=== PATIENT | male | born 1965 | race Two or more races ===

== ENCOUNTER 2018-09-17 17:32 | Emergency (ER) | payer MEDICAID ==
[~2018-09-17] VITALS: Ht 175.3 cm; Wt 75.0 kg
[2018-09-17 17:35] VITALS: BP 120/78
[2018-09-17] MEDS ORDERED: BACITRACIN ZINC OINT 500U/GM, 0.9 GM ONE (18:33)
== END 2018-09-17 19:23 | disposition home or self-care (01) ==
LOC: ED 18:11
DX: S50.862A Insect bite (nonvenomous) of left forearm, initial encounter (principal); L03.032 Cellulitis of left toe; W57.XXXA Bitten or stung by nonvenomous insect and other nonvenomous arthropods, initial encounter; Y93.89 Activity, other specified; Y92.89 Other specified places as the place of occurrence of the external cause; Y99.8 Other external cause status
CPT/HCPCS: 99283

== ENCOUNTER 2020-03-08 17:12 | Inpatient (IN) | payer OTHER ==
[~2020-03-08] VITALS: Ht 175.3 cm; Wt 85.5 kg
--- NOTE | 2020-03-08 18:04 | NUR ---
TAXI DANCER: PT AMBULATORY TO ROOM FROM LOBBY
--- NOTE | 2020-03-08 18:13 | NUR ---
PT NOT IN ROOM 9.
[2020-03-08 18:41] LABS: BASOPHILS # (AUTO) 0.01 x10^3/uL (0-0.1); BASOPHILS % (AUTO) 0 % (0-1); EOSINOPHILS % (AUTO) 0 % (1-7); LYMPHOCYTES % (AUTO) 7 % (22-44); MD NO; MEAN CORPUSCULAR HGB CONC 33.9 g/dL (33.2-36.2); MEAN CORPUSCULAR VOLUME 85.6 fL (81-97); MEAN PLATELET VOLUME 8.1 fL (7.4-10.4); MONOCYTES # (AUTO) 0.39 x10^3/uL (0.2-0.8); MONOCYTES % (AUTO) 4 % (2-9); NEUTROPHILS # (AUTO) 9.89 x10^3/uL (1.8-6.8); NEUTROPHILS % (AUTO) 89 % (42-75); PLATELET COUNT 312 x10^3/uL (130-400); RED BLOOD COUNT 5.38 x10^6/uL (4.38-5.82); RED CELL DISTRIBUTION WIDTH 14.7 % (9.4-14.8)
[2020-03-08 18:50] LABS: ALBUMIN 3.9 g/dL (3.4-5.0); ANION GAP 10 mmol/L (5-15); CALCIUM 9.3 mg/dL (8.5-10.1); CHLORIDE 107 mmol/L (98-107)
--- NOTE | 2020-03-08 18:58 | NUR ---
16 jamil placed using sterile technique-concentrated urine noted-sent for analysis
[2020-03-08 19:08] LABS: CULTURE INDICATED? YES; MICROSCOPIC INDICATED
--- NOTE | 2020-03-08 19:09 | NUR ---
PT REPORT FROM MEKA HUYNH RN. PT CARE TO BE ASSUMED.
[2020-03-08] MEDS ORDERED: KETOROLAC 30 MG/1 ML ONE (19:14)
--- NOTE | 2020-03-08 19:22 | NUR ---
TORADOL GIVEN PER EMAR. PT C/O 09/09 BLADDER PAIN. NS INFUSING W-O; SITE PATENT. DENIES TAKING PAIN MED TODAY. LAST ORAL INTAKE: ONLY WATER TODAY. PT'S BROTHER IN ROOM.
--- NOTE | 2020-03-08 19:27 | NUR ---
PT UNABLE TO RECALL NAMES OF MEDS HE TAKES/HAS TAKEN RECENTLY.
[2020-03-08] MEDS ORDERED: KETOROLAC 30 MG/1 ML IVPush ONE (19:30)
[2020-03-08] MEDS ORDERED: SODIUM CHLORIDE 0.9% 1,000ML IVBOLUS ONE ×2 (19:30→21:00)
--- NOTE | 2020-03-08 19:30 | NUR ---
ATTEMPTED TO PLACE [place] PER ORDER-UNABLE TO DO SO (ASSUMED INFLAMMED PROSTATE). aT TIME OF PLACEMENT FAILURE ULTRASOUND AT BEDSIDE-HE PERFORMED BLADDER SCAN- NO FLUID IN BLADDER. PROVIDER MADE AWARE- PROVIDER REPORTS "NO NEED TO ATTEMPT CATH AGAIN-PATIENT WITH PROBABLE COMPLETE RENAL FAILURE THUS NO BLADDER VOLUME."
--- NOTE | 2020-03-08 19:33 | NUR ---
PT CONTINUES TO C/O 09/09 PAIN. WILL CONSULT ERP RE: ADDITIONAL/OTHER PAIN MED.
[2020-03-08] MEDS ORDERED: MORPHINE SULFATE 4 MG/ML, 1ML IVPush PRN (20:00)
[2020-03-08] MEDS ORDERED: ONDANSETRON 2MG/ML, 2ML IVPush ONE (20:00)
[2020-03-08] MEDS ORDERED: MORPHINE SULFATE 4 MG/ML, 1ML ONE (20:13)
[2020-03-08] MEDS ORDERED: ONDANSETRON 2MG/ML, 2ML ONE (20:13)
[2020-03-08] MEDS ORDERED: OMNIPAQUE 350 MG/ML, 100ML BOTTLE ONE (20:17)
--- NOTE | 2020-03-08 20:22 | NUR ---
ZOFRAN AND MORPHINE GIVEN. IV SITE PATENT.
[2020-03-08] MEDS ORDERED: METRONIDAZOLE PMX 500MG/100ML 100 ML IV ONE (20:30)
[2020-03-08] MEDS ORDERED: CEFTRIAXONE PMX 1GM/50ML 50 ML IV ONE (20:30)
--- NOTE | 2020-03-08 21:04 | NUR ---
DR CAAL BS
--- NOTE | 2020-03-08 21:15 | NUR ---
2ND LITER SORIN MCMAHON. IV SITE PATENT.
--- NOTE | 2020-03-08 21:16 | NUR ---
DR OLIVER BS FOR EXAM
[2020-03-08] MEDS ORDERED: METRONIDAZOLE PMX 500MG/100ML 100 ML ONE (21:18)
[2020-03-08] MEDS ORDERED: CEFTRIAXONE PMX 1GM/50ML 50 ML ONE (21:18)
[2020-03-08] MEDS ORDERED: SODIUM CHLORIDE 0.9% 1,000 ML IV SCH (21:23)
[2020-03-08] MEDS ORDERED: ONDANSETRON 2MG/ML, 2ML IVPush PRN (21:30)
--- NOTE | 2020-03-08 21:47 | NUR ---
PT REPORT TO RADHA BACK FOR ROOM 455
[2020-03-08 22:20] VITALS: BP 112/61
[2020-03-08] MEDS: morphine SULFATE 10 MG/ML, 1ML IVPush PRN (23:50)
[2020-03-09 02:16] VITALS: BP 118/65
[2020-03-09] MEDS: morphine SULFATE 10 MG/ML, 1ML IVPush PRN ×6 (04:14→22:29)
[2020-03-09] MEDS: METRONIDAZOLE PMX 500MG/100ML 100 ML IV SCH ×4 (04:16→22:29)
[2020-03-09 04:44] LABS: BASOPHILS % (AUTO) 0 % (0-1); EOSINOPHILS % (AUTO) 0 % (1-7); LYMPHOCYTES # (AUTO) 0.99 x10^3/uL (1-3.4); LYMPHOCYTES % (AUTO) 11 % (22-44); MD NO; MEAN CORPUSCULAR HEMOGLOBIN 29.2 pg (27.5-34.5); MEAN CORPUSCULAR HGB CONC 33.9 g/dL (33.2-36.2); MEAN CORPUSCULAR VOLUME 86.2 fL (81-97); MEAN PLATELET VOLUME 8.1 fL (7.4-10.4); MONOCYTES # (AUTO) 0.25 x10^3/uL (0.2-0.8); MONOCYTES % (AUTO) 3 % (2-9); NEUTROPHILS # (AUTO) 7.94 x10^3/uL (1.8-6.8); NEUTROPHILS % (AUTO) 86 % (42-75); PLATELET COUNT 231 x10^3/uL (130-400); RED BLOOD COUNT 4.36 x10^6/uL (4.38-5.82)
[2020-03-09 04:49] LABS: ANION GAP 7 mmol/L (5-15); CALCIUM 7.9 mg/dL (8.5-10.1); CHLORIDE 114 mmol/L (98-107); CREATININE 0.83 mg/dL (0.7-1.3)
[2020-03-09 06:42] VITALS: BP 125/84
[2020-03-09] MEDS: SODIUM CHLORIDE 0.9% 1,000 ML IV SCH ×2 (08:05→19:27)
[2020-03-09] MEDS: CEFTRIAXONE PMX 1GM/50ML 50 ML IV SCH (08:57)
[2020-03-09] MEDS ORDERED: NALOXONE 1 MG/ML, 2ML ONE (14:28)
[2020-03-09] MEDS ORDERED: FENTANYL PF 100 MCG/2ML ONE (14:28)
[2020-03-09] MEDS ORDERED: MIDAZOLAM 1 MG/ML, 5ML ONE (14:28)
[2020-03-09] MEDS ORDERED: FLUMAZENIL 0.1 MG/1 ML, 5ML ONE (14:28)
[2020-03-09 14:37] VITALS: BP 124/73
[2020-03-09] MEDS ORDERED: LIDOCAINE 1%, 10ML ONE (14:48)
[2020-03-09] MEDS: ACETAMINOPHEN 325 MG TABLET PO PRN (16:57)
[2020-03-09 19:07] VITALS: BP 106/60
[2020-03-10 00:31] VITALS: BP 107/72
[2020-03-10] MEDS: SODIUM CHLORIDE 0.9% 1,000 ML IV SCH (03:18)
[2020-03-10] MEDS: METRONIDAZOLE PMX 500MG/100ML 100 ML IV SCH ×4 (04:19→22:39)
[2020-03-10] MEDS: morphine SULFATE 10 MG/ML, 1ML IVPush PRN ×3 (04:19→23:57)
[2020-03-10 04:25] VITALS: BP 114/76
[2020-03-10 05:44] LABS: BASOPHILS # (AUTO) 0.02 x10^3/uL (0-0.1); BASOPHILS % (AUTO) 0 % (0-1); EOSINOPHILS # (AUTO) 0.01 x10^3/uL (0-0.4); EOSINOPHILS % (AUTO) 0 % (1-7); LYMPHOCYTES # (AUTO) 1.03 x10^3/uL (1-3.4); LYMPHOCYTES % (AUTO) 9 % (22-44); MD NO; MEAN CORPUSCULAR HEMOGLOBIN 29.3 pg (27.5-34.5); MEAN CORPUSCULAR HGB CONC 33.5 g/dL (33.2-36.2); MEAN CORPUSCULAR VOLUME 87.4 fL (81-97); MEAN PLATELET VOLUME 8.2 fL (7.4-10.4); MONOCYTES % (AUTO) 6 % (2-9); NEUTROPHILS % (AUTO) 84 % (42-75); PLATELET COUNT 222 x10^3/uL (130-400); RED BLOOD COUNT 4.15 x10^6/uL (4.38-5.82); RED CELL DISTRIBUTION WIDTH 15.1 % (9.4-14.8)
[2020-03-10 05:55] LABS: ANION GAP 7 mmol/L (5-15); CALCIUM 8.2 mg/dL (8.5-10.1); CHLORIDE 112 mmol/L (98-107); CREATININE 0.73 mg/dL (0.7-1.3)
[2020-03-10 06:35] VITALS: BP 106/71
[2020-03-10] MEDS: CEFTRIAXONE PMX 1GM/50ML 50 ML IV SCH (08:45)
[2020-03-10] MEDS: D5%-0.45% NACL 1,000 ML IV SCH ×2 (08:47→21:57)
[2020-03-10] MEDS ORDERED: CHLORHEXIDINE 15 ML UDC MM STA (11:15)
[2020-03-10] MEDS ORDERED: CHLORHEXIDINE 15 ML UDC ONE (11:18)
[2020-03-10] MEDS ORDERED: BUPIVACAINE/PF-EPI 0.5% 1:200K ONE (11:35)
[2020-03-10] MEDS ORDERED: FENTANYL PF 250 MCG/5ML ONE (11:47)
[2020-03-10] MEDS ORDERED: MIDAZOLAM 1 MG/ML, 2ML ONE (11:47)
[2020-03-10] MEDS ORDERED: GLYCOPYRROLATE 0.2MG/1ML, 5ML ONE (13:00)
[2020-03-10] MEDS ORDERED: MEPERIDINE/PF 25MG/ML,1ML IVPush PRN (13:00)
[2020-03-10] MEDS ORDERED: PROMETHAZINE 25 MG/ML, 1ML IV PRN (13:00)
[2020-03-10] MEDS ORDERED: ACETAMINOPHEN 325 MG TABLET PO PRN (13:00)
[2020-03-10] MEDS ORDERED: KETOROLAC 30 MG/1 ML ONE (13:00)
[2020-03-10] MEDS ORDERED: FENTANYL PF 100 MCG/2ML IV PRN (13:00)
[2020-03-10] MEDS ORDERED: SUCCINYLCHOLINE 20 MG/ML, 10ML ONE (13:00)
[2020-03-10] MEDS ORDERED: HYDROmorphone 2 MG/ML, 1ML IVPush PRN (13:00)
[2020-03-10] MEDS ORDERED: ROCURONIUM 10MG/ML,5ML ONE (13:00)
[2020-03-10] MEDS ORDERED: MIDAZOLAM 1 MG/ML, 2ML IV PRN (13:00)
[2020-03-10] MEDS ORDERED: OXYcodone 5 MG/5 ML ORAL.SOL UDC PO PRN (13:00)
[2020-03-10] MEDS ORDERED: PROPOFOL 10 MG/ML, 20ML ONE (13:00)
[2020-03-10] MEDS ORDERED: NEOSTIGMINE 1 MG/ML, 10ML ONE (13:00)
[2020-03-10] MEDS ORDERED: LIDOCAINE-MPF 2% ,5ML ONE (13:00)
[2020-03-10] MEDS ORDERED: DEXAMETHASONE 4 MG/ML, 1ML ONE (13:00)
[2020-03-10] MEDS ORDERED: ONDANSETRON 2MG/ML, 2ML ONE (13:00)
[2020-03-10] MEDS ORDERED: hydrALAzine 20 MG/ML, 1ML IV PRN (13:00)
[2020-03-10] MEDS ORDERED: METOPROLOL 1 MG/ML, 5ML IV PRN (13:00)
[2020-03-10] MEDS ORDERED: ALBUTEROL SULFATE 2.5 MG/3 ML NPPB PRN (13:00)
[2020-03-10 18:29] VITALS: BP 94/68
[2020-03-10 18:45] VITALS: BP 94/68
[2020-03-10] MEDS: ACETAMINOPHEN 325 MG TABLET PO PRN ×2 (19:49→23:57)
[2020-03-11 00:03] VITALS: BP 93/54
[2020-03-11 03:44] VITALS: BP 93/55
[2020-03-11] MEDS: ACETAMINOPHEN 325 MG TABLET PO PRN (04:35)
[2020-03-11] MEDS: METRONIDAZOLE PMX 500MG/100ML 100 ML IV SCH ×4 (04:36→22:50)
[2020-03-11 06:40] VITALS: BP 92/53
[2020-03-11] MEDS: D5%-0.45% NACL 1,000 ML IV SCH ×3 (06:43→23:58)
[2020-03-11] MEDS: CEFTRIAXONE PMX 1GM/50ML 50 ML IV SCH (07:42)
[2020-03-11] MEDS: OXYcodone IR 5MG TABLET PO PRN ×3 (09:08→18:09)
[2020-03-11 13:48] VITALS: BP 94/59
[2020-03-11 18:22] VITALS: BP 98/58
[2020-03-12 01:02] VITALS: BP 93/46
[2020-03-12] MEDS: METRONIDAZOLE PMX 500MG/100ML 100 ML IV SCH ×4 (04:50→22:32)
[2020-03-12 04:51] LABS: ANION GAP 6 mmol/L (5-15); CALCIUM 7.4 mg/dL (8.5-10.1); CHLORIDE 111 mmol/L (98-107)
[2020-03-12 04:52] LABS: CREATININE 0.57 mg/dL (0.7-1.3)
[2020-03-12 04:57] LABS: BASOPHILS # (AUTO) 0.01 x10^3/uL (0-0.1); BASOPHILS % (AUTO) 0 % (0-1); EOSINOPHILS # (AUTO) 0.02 x10^3/uL (0-0.4); EOSINOPHILS % (AUTO) 0 % (1-7); LYMPHOCYTES # (AUTO) 1.31 x10^3/uL (1-3.4); LYMPHOCYTES % (AUTO) 11 % (22-44); MD NO; MEAN CORPUSCULAR HEMOGLOBIN 29.3 pg (27.5-34.5); MEAN CORPUSCULAR HGB CONC 33.6 g/dL (33.2-36.2); MEAN CORPUSCULAR VOLUME 87.2 fL (81-97); MEAN PLATELET VOLUME 8.2 fL (7.4-10.4); MONOCYTES # (AUTO) 0.55 x10^3/uL (0.2-0.8); MONOCYTES % (AUTO) 5 % (2-9); NEUTROPHILS # (AUTO) 9.79 x10^3/uL (1.8-6.8); NEUTROPHILS % (AUTO) 84 % (42-75); PLATELET COUNT 213 x10^3/uL (130-400); RED BLOOD COUNT 3.52 x10^6/uL (4.38-5.82); RED CELL DISTRIBUTION WIDTH 15.1 % (9.4-14.8)
[2020-03-12] MEDS: OXYcodone IR 5MG TABLET PO PRN ×3 (05:49→20:50)
[2020-03-12 06:41] VITALS: BP 98/58
[2020-03-12] MEDS: D5%-0.45% NACL 1,000 ML IV SCH (08:09)
[2020-03-12] MEDS: CEFTRIAXONE PMX 1GM/50ML 50 ML IV SCH (08:09)
[2020-03-12] MEDS: MORPHINE SULFATE 4 MG/ML, 1ML IVPush PRN (08:18)
[2020-03-12 12:51] VITALS: BP 128/84
[2020-03-12] MEDS: POTASSIUM CHLORIDE 20 MEQ TAB.ER.PRT PO SCH (16:44)
[2020-03-12] MEDS: ACETAMINOPHEN 325 MG TABLET PO PRN ×2 (16:44→20:54)
[2020-03-12 18:33] VITALS: BP 116/72
[2020-03-13 01:36] VITALS: BP 116/60
[2020-03-13] MEDS: ACETAMINOPHEN 325 MG TABLET PO PRN ×4 (01:44→16:14)
[2020-03-13] MEDS: OXYcodone IR 5MG TABLET PO PRN ×4 (01:44→16:14)
[2020-03-13] MEDS: METRONIDAZOLE PMX 500MG/100ML 100 ML IV SCH ×2 (04:48→10:07)
[2020-03-13 04:58] LABS: BASOPHILS # (AUTO) 0.14 x10^3/uL (0-0.1); BASOPHILS % (AUTO) 1 % (0-1); EOSINOPHILS # (AUTO) 0.11 x10^3/uL (0-0.4); EOSINOPHILS % (AUTO) 1 % (1-7); LYMPHOCYTES # (AUTO) 1.47 x10^3/uL (1-3.4); LYMPHOCYTES % (AUTO) 14 % (22-44); MD NO; MEAN CORPUSCULAR HGB CONC 33.6 g/dL (33.2-36.2); MEAN CORPUSCULAR VOLUME 86.5 fL (81-97); MEAN PLATELET VOLUME 8.4 fL (7.4-10.4); MONOCYTES # (AUTO) 0.81 x10^3/uL (0.2-0.8); MONOCYTES % (AUTO) 8 % (2-9); NEUTROPHILS # (AUTO) 7.71 x10^3/uL (1.8-6.8); NEUTROPHILS % (AUTO) 75 % (42-75); PLATELET COUNT 265 x10^3/uL (130-400); RED BLOOD COUNT 4.37 x10^6/uL (4.38-5.82); RED CELL DISTRIBUTION WIDTH 14.6 % (9.4-14.8)
[2020-03-13 05:04] LABS: ANION GAP 5 mmol/L (5-15); CALCIUM 7.9 mg/dL (8.5-10.1); CHLORIDE 107 mmol/L (98-107)
[2020-03-13 05:05] LABS: CREATININE 0.59 mg/dL (0.7-1.3)
[2020-03-13 06:40] VITALS: BP 117/76
[2020-03-13] MEDS: POTASSIUM CHLORIDE 20 MEQ TAB.ER.PRT PO SCH (07:33)
[2020-03-13] MEDS: CEFTRIAXONE PMX 1GM/50ML 50 ML IV SCH (07:33)
[2020-03-13] MEDS: MORPHINE SULFATE 4 MG/ML, 1ML IVPush PRN (11:39)
[2020-03-13] MEDS ORDERED: MAGNESIUM HYDROXIDE 8%, 30ML UDC PO SCH (12:00)
[2020-03-13 12:54] VITALS: BP 117/76
[2020-03-13] MEDS ORDERED: POLY17PO5 PO (15:01)
[2020-03-13] MEDS ORDERED: DOCU-131 PO (15:01)
[2020-03-13] MEDS ORDERED: METR500T PO (15:01)
[2020-03-13] MEDS ORDERED: CEFD300C37 PO (15:01)
== END 2020-03-13 16:48 | disposition home or self-care (01) | DRG 339 ==
LOC: ED 19:09 → EDIP 21:30 → 4NE 22:01
PROVIDERS: ADMIT Internal Medicine; ATTEND Internal Medicine
PROC: 0T9B70Z Drainage of Bladder with Drainage Device, Via Natural or Artificial Opening (ICD-10-PCS; 2020-03-08)
PROC: 0W9J4ZZ Drainage of Pelvic Cavity, Percutaneous Endoscopic Approach (ICD-10-PCS; 2020-03-10)
PROC: 0DTJ4ZZ Resection of Appendix, Percutaneous Endoscopic Approach (ICD-10-PCS; principal; 2020-03-10 14:15)
DX: K35.33 Acute appendicitis with perforation, localized peritonitis, and gangrene, with abscess (principal); R65.10 Systemic inflammatory response syndrome (SIRS) of non-infectious origin without acute organ dysfunction; E16.2 Hypoglycemia, unspecified; R00.0 Tachycardia, unspecified; I95.9 Hypotension, unspecified; K59.00 Constipation, unspecified; Z85.47 Personal history of malignant neoplasm of testis
CPT/HCPCS: 36415; 75989; 96361; 96374; 96375; 99291; J3490; 49406; 74177; 80048; 81001; 82040; 85025; 87040; 87086; 88304; 99156; 99157; C1729; C1894; G0378; J0696; J1100; J1885; J2250; J2405; J2704; J2710; J3010; Q9967; C1769; J0330; J2270; J2310; J7030

== ENCOUNTER 2020-03-29 15:35 | Inpatient (IN) | payer OTHER, MEDICAID ==
[~2020-03-29] VITALS: Ht 172.7 cm; Wt 68.3 kg
[~2020-03-29 15:35] MED LIST: CEFD300C37 PO; DOCU-131 PO; METR500T PO; POLY17PO5 PO
--- NOTE | 2020-03-29 15:45 | NUR ---
PT TO ROOM 13 PER PEDIS WITH FATHER AND RN. PT HAD SURGERY HERE AT THE BEGINING OF MARCH FOR APPENDICITIS, AND NOW HAS DEVELOPED A MASS OF INFECTION IN HIS RUQ/RLQ, PERIUMBILICAL AND SUPER PUBIC. PT WAS SEEN HERE 2 DAYS AGO FOR THE SAME REASON, AND WAS PUT ON MEDICATIONS AND TOLD TO WAIT IT OUT. TONIGHT PAIN VERY INTENSE. PT PLACED ON MONITOR, PUT IN GOWN, GIVEN WARM BLANKETS AND GIVEN CALL LIGHT WITH INSTRUCTIONS.
[2020-03-29 16:06] LABS: BASOPHILS # (AUTO) 0.02 x10^3/uL (0-0.1); BASOPHILS % (AUTO) 0 % (0-1); EOSINOPHILS # (AUTO) 0.11 x10^3/uL (0-0.4); EOSINOPHILS % (AUTO) 1 % (1-7); LYMPHOCYTES # (AUTO) 1.88 x10^3/uL (1-3.4); LYMPHOCYTES % (AUTO) 17 % (22-44); MD NO; MEAN CORPUSCULAR HEMOGLOBIN 28.7 pg (27.5-34.5); MEAN CORPUSCULAR HGB CONC 33.5 g/dL (33.2-36.2); MEAN CORPUSCULAR VOLUME 85.4 fL (81-97); MEAN PLATELET VOLUME 7.9 fL (7.4-10.4); MONOCYTES # (AUTO) 0.61 x10^3/uL (0.2-0.8); MONOCYTES % (AUTO) 6 % (2-9); NEUTROPHILS # (AUTO) 8.39 x10^3/uL (1.8-6.8); NEUTROPHILS % (AUTO) 76 % (42-75); PLATELET COUNT 538 x10^3/uL (130-400); RED BLOOD COUNT 4.83 x10^6/uL (4.38-5.82); RED CELL DISTRIBUTION WIDTH 14.8 % (9.4-14.8)
[2020-03-29 16:15] LABS: ALANINE AMINOTRANSFERASE 39 U/L (12-78); ALBUMIN 3.2 g/dL (3.4-5.0); ANION GAP 7 mmol/L (5-15); CALCIUM 9.3 mg/dL (8.5-10.1); CHLORIDE 105 mmol/L (98-107); CREATININE 0.84 mg/dL (0.7-1.3)
--- NOTE | 2020-03-29 16:15 | NUR ---
PT UP PER PEDIS TO BR TO COLLECT URINE FOR TESTING. PT STABLE. AWAITING ORDERS.
[2020-03-29 16:17] LABS: ALKALINE PHOSPHATASE 74 U/L (45-117); BILIRUBIN,TOTAL 0.6 mg/dL (0.2-1.0); TOTAL PROTEIN 8.1 g/dL (6.4-8.2)
[2020-03-29] MEDS ORDERED: SODIUM CHLORIDE 0.9% 1,000ML IVBOLUS ONE (16:30)
[2020-03-29] MEDS ORDERED: METRONIDAZOLE PMX 500MG/100ML 100 ML IV ONE (16:30)
[2020-03-29] MEDS ORDERED: ONDANSETRON 2MG/ML, 2ML IVPush ONE (16:30)
[2020-03-29] MEDS ORDERED: MORPHINE SULFATE 4 MG/ML, 1ML IVPush PRN (16:30)
[2020-03-29] MEDS ORDERED: CEFOTETAN PMX 1GM/50ML 50 ML IV ONE (16:30)
--- NOTE | 2020-03-29 17:00 | NUR ---
TESTING OF URINE COMPLETE. IV PLACED, BLOOD CULTURES DRAWN, ORDERS FOR PAIN MEDICATIONS GIVEN. RN IN TO [facility]ANG ANTIBIOTICS AND ADMINISTER PAIN MEDICATIONS. PT ASKS RN TO COME BACK HE IS ON IS PHONE WITH HIS . RN LEAVES ROOM.
[2020-03-29] MEDS ORDERED: CEFTRIAXONE PMX 1GM/50ML 50 ML ONE (17:19)
[2020-03-29] MEDS ORDERED: METRONIDAZOLE PMX 500MG/100ML 100 ML ONE (17:19)
[2020-03-29] MEDS ORDERED: ONDANSETRON 2MG/ML, 2ML ONE (17:19)
[2020-03-29] MEDS ORDERED: MORPHINE SULFATE 4 MG/ML, 1ML ONE ×2 (17:20→20:08)
--- NOTE | 2020-03-29 17:30 | NUR ---
RN BACK TO GIVE MEDICATIONS. 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 PT WAS HERE AT THE BEGINING OF MARCH, AND LEFT HIS CLASSIFIER IN THE ROOM. RN CALLED SECURITY AND THEY DID NOT HAVE IT. RN CALLED [facility]TH [facility]LO[facility] AND THEY WILL LOOK FOR IT. PT UP TO [place].
[2020-03-29 18:18] LABS: MICROSCOPIC AUTO
[2020-03-29 18:28] LABS: CULTURE INDICATED? NO
--- NOTE | 2020-03-29 18:30 | NUR ---
IV ANTIBIOTICS, FLUIDS, PAIN MEDICATIONS AND ANTIEMETICS GIVEN WITHOUT DIFF. PT REQUESTING FOOD. RN INQUIRES ABOUT FOOD, OK TO EAT, NPO AFTER MIDNOC. RN ORDERS TRAY. PT VERY UPSET AND WOULD LIKE TO HAVE THE DOCTORS NOT DO SURGERY TOMORROW HIS INSURANCE DOES NOT START UNTIL MARCH 31. DOCTORS INFORM PATIENT THAT WITHOUT THE SURGERY HE COULD . PT WOULD LIKE TO TALK TO THE DOCTORS AGAIN. INFORMED.
[2020-03-29] MEDS ORDERED: BISACODYL 10 MG SUPP PR PRN (19:30)
[2020-03-29] MEDS ORDERED: ACETAMINOPHEN 325 MG TABLET PO PRN (19:30)
[2020-03-29] MEDS ORDERED: ONDANSETRON 2MG/ML, 2ML IVPush PRN (19:30)
[2020-03-29] MEDS ORDERED: DOCUSATE 100 MG CAPSULE PO PRN (19:30)
--- NOTE | 2020-03-29 19:56 | NUR ---
FOOD TRAY GIVEN. PT EATING WITHOUT DIFF. PT MEDICATED AGAIN FOR PAIN.
[2020-03-29] MEDS: HEPARIN 5,000 UNITS/ML, 1ML SQ SCH (20:00)
[2020-03-29] MEDS ORDERED: METRONIDAZOLE PMX 500MG/100ML 100 ML IV SCH (20:00)
[2020-03-29] MEDS ORDERED: SODIUM CHLORIDE 0.9% 1,000 ML IV SCH (20:00)
--- NOTE | 2020-03-29 20:15 | NUR ---
REPORT TO FLOOR RN. PT READY FOR TRANSPORT
[2020-03-29 21:16] VITALS: BP 132/62
[2020-03-29] MEDS: morphine SULFATE 10 MG/ML, 1ML IVPush PRN (21:54)
[2020-03-29] MEDS: PIPERACILLIN/TAZO/PMX 3.375GM 50 ML IV SCH (21:55)
[2020-03-29] MEDS: SODIUM CHLORIDE 0.9% 1,000 ML IV SCH (21:55)
[2020-03-29] MEDS ORDERED: AMOX1TAB61 PO (22:33)
[2020-03-29] MEDS ORDERED: TRAM50TA2 PO (22:33)
[2020-03-29] MEDS ORDERED: OXYC5CAP2 PO (23:41)
[2020-03-30 01:22] VITALS: BP 111/76
[2020-03-30] MEDS: morphine SULFATE 10 MG/ML, 1ML IVPush PRN ×4 (03:26→20:53)
[2020-03-30] MEDS: PIPERACILLIN/TAZO/PMX 3.375GM 50 ML IV SCH ×4 (03:26→20:53)
[2020-03-30] MEDS: HEPARIN 5,000 UNITS/ML, 1ML SQ SCH ×3 (03:43→20:00)
[2020-03-30 06:18] LABS: BASOPHILS # (AUTO) 0.03 x10^3/uL (0-0.1); BASOPHILS % (AUTO) 0 % (0-1); EOSINOPHILS # (AUTO) 0.09 x10^3/uL (0-0.4); EOSINOPHILS % (AUTO) 1 % (1-7); LYMPHOCYTES % (AUTO) 15 % (22-44); MD NO; MEAN CORPUSCULAR HEMOGLOBIN 28.5 pg (27.5-34.5); MEAN CORPUSCULAR HGB CONC 33.1 g/dL (33.2-36.2); MEAN CORPUSCULAR VOLUME 86.2 fL (81-97); MEAN PLATELET VOLUME 7.7 fL (7.4-10.4); MONOCYTES # (AUTO) 0.55 x10^3/uL (0.2-0.8); MONOCYTES % (AUTO) 7 % (2-9); NEUTROPHILS # (AUTO) 6.43 x10^3/uL (1.8-6.8); NEUTROPHILS % (AUTO) 78 % (42-75); PLATELET COUNT 421 x10^3/uL (130-400); RED BLOOD COUNT 4.19 x10^6/uL (4.38-5.82); RED CELL DISTRIBUTION WIDTH 15.4 % (9.4-14.8)
[2020-03-30 06:26] LABS: ANION GAP 5 mmol/L (5-15); CALCIUM 8.7 mg/dL (8.5-10.1); CHLORIDE 109 mmol/L (98-107)
[2020-03-30 06:27] LABS: CREATININE 0.79 mg/dL (0.7-1.3)
[2020-03-30 06:45] VITALS: BP 98/60
[2020-03-30] MEDS: POLYETHYLENE GLYCOL 17 GM PACKET PO SCH (08:25)
[2020-03-30] MEDS: SENNA/DOCUSATE TABLET PO SCH (08:26)
[2020-03-30 12:59] VITALS: BP 100/64
[2020-03-30] MEDS: SODIUM CHLORIDE 0.9% 1,000 ML IV SCH (17:35)
[2020-03-30 19:33] VITALS: BP 103/74
[2020-03-31 02:03] VITALS: BP 110/74
[2020-03-31] MEDS: PIPERACILLIN/TAZO/PMX 3.375GM 50 ML IV SCH ×4 (03:00→20:13)
[2020-03-31] MEDS: HEPARIN 5,000 UNITS/ML, 1ML SQ SCH ×3 (03:10→20:13)
[2020-03-31] MEDS: morphine SULFATE 10 MG/ML, 1ML IVPush PRN ×3 (03:44→20:16)
[2020-03-31 04:43] VITALS: BP 105/69
[2020-03-31 05:35] LABS: BASOPHILS # (AUTO) 0.02 x10^3/uL (0-0.1); BASOPHILS % (AUTO) 0 % (0-1); EOSINOPHILS # (AUTO) 0.12 x10^3/uL (0-0.4); EOSINOPHILS % (AUTO) 2 % (1-7); LYMPHOCYTES # (AUTO) 1.33 x10^3/uL (1-3.4); LYMPHOCYTES % (AUTO) 18 % (22-44); MD NO; MEAN CORPUSCULAR HEMOGLOBIN 28.4 pg (27.5-34.5); MEAN CORPUSCULAR HGB CONC 32.9 g/dL (33.2-36.2); MEAN CORPUSCULAR VOLUME 86.4 fL (81-97); MEAN PLATELET VOLUME 7.9 fL (7.4-10.4); MONOCYTES # (AUTO) 0.49 x10^3/uL (0.2-0.8); MONOCYTES % (AUTO) 7 % (2-9); NEUTROPHILS # (AUTO) 5.57 x10^3/uL (1.8-6.8); NEUTROPHILS % (AUTO) 74 % (42-75); PLATELET COUNT 409 x10^3/uL (130-400); RED BLOOD COUNT 4.12 x10^6/uL (4.38-5.82); RED CELL DISTRIBUTION WIDTH 14.5 % (9.4-14.8)
[2020-03-31 05:46] LABS: ANION GAP 6 mmol/L (5-15); CALCIUM 8.2 mg/dL (8.5-10.1); CHLORIDE 109 mmol/L (98-107)
[2020-03-31] MEDS ORDERED: BUPIVACAINE/PF-EPI 0.5% 1:200K ONE (07:02)
[2020-03-31 07:34] VITALS: BP 104/71
[2020-03-31] MEDS ORDERED: MIDAZOLAM 1 MG/ML, 2ML ONE (07:52)
[2020-03-31] MEDS ORDERED: FENTANYL PF 250 MCG/5ML ONE (07:53)
[2020-03-31] MEDS ORDERED: OXYcodone 5 MG/5 ML ORAL.SOL UDC PO PRN (08:30)
[2020-03-31] MEDS ORDERED: PROMETHAZINE 25 MG SUPP PR PRN (08:30)
[2020-03-31] MEDS ORDERED: ONDANSETRON ODT 8 MG PO PRN (08:30)
[2020-03-31] MEDS ORDERED: PROMETHAZINE 12.5 MG SUPP PR PRN (08:30)
[2020-03-31] MEDS ORDERED: PROMETHAZINE 25 MG/ML, 1ML IV PRN (08:30)
[2020-03-31] MEDS ORDERED: LORazepam 2 MG/ML, 1ML IVPush PRN (08:30)
[2020-03-31] MEDS ORDERED: ACETAMINOPHEN 325 MG TABLET PO PRN (08:30)
[2020-03-31] MEDS ORDERED: ONDANSETRON 2MG/ML, 2ML IV PRN (08:30)
[2020-03-31] MEDS ORDERED: GLYCOPYRROLATE 0.2MG/1ML, 5ML ONE (08:50)
[2020-03-31] MEDS ORDERED: CEFAZOLIN 1,000 MG ONE (08:50)
[2020-03-31] MEDS ORDERED: NEOSTIGMINE 1 MG/ML, 10ML ONE (08:50)
[2020-03-31] MEDS ORDERED: DEXAMETHASONE 4 MG/ML, 1ML ONE (08:50)
[2020-03-31] MEDS ORDERED: PROPOFOL 10 MG/ML, 20ML ONE (08:50)
[2020-03-31] MEDS ORDERED: SUCCINYLCHOLINE 20 MG/ML, 10ML ONE (08:50)
[2020-03-31] MEDS ORDERED: ONDANSETRON 2MG/ML, 2ML ONE (08:50)
[2020-03-31] MEDS ORDERED: ROCURONIUM 10MG/ML,5ML ONE ×2 (08:50)
[2020-03-31] MEDS ORDERED: LIDOCAINE-MPF 2% ,5ML ONE (08:51)
[2020-03-31] MEDS: SENNA/DOCUSATE TABLET PO SCH (09:00)
[2020-03-31] MEDS: POLYETHYLENE GLYCOL 17 GM PACKET PO SCH (09:00)
[2020-03-31] MEDS ORDERED: FENTANYL PF 100 MCG/2ML ONE ×3 (10:01→11:39)
[2020-03-31] MEDS ORDERED: HYDROmorphone 1 MG/ML, 1ML INJ ONE ×3 (10:37→12:27)
[2020-03-31] MEDS: FENTANYL PF 100 MCG/2ML IV PRN ×3 (10:38→11:41)
[2020-03-31] MEDS: HYDROmorphone 2 MG/ML, 1ML IVPush PRN ×5 (10:48→12:25)
[2020-03-31] MEDS ORDERED: KETOROLAC 30 MG/1 ML ONE (10:56)
[2020-03-31] MEDS ORDERED: KETOROLAC 30 MG/1 ML IVPush ONE (11:00)
[2020-03-31] MEDS ORDERED: MEPERIDINE/PF 25MG/ML,1ML ONE (11:29)
[2020-03-31] MEDS ORDERED: LORazepam 2 MG/ML, 1ML ONE (11:55)
[2020-03-31] MEDS: SODIUM CHLORIDE 0.9% 1,000 ML IV SCH (20:13)
[2020-03-31 20:15] VITALS: BP 138/88
[2020-04-01 00:03] VITALS: BP 121/78
[2020-04-01] MEDS: morphine SULFATE 10 MG/ML, 1ML IVPush PRN ×6 (00:15→19:50)
[2020-04-01] MEDS: PIPERACILLIN/TAZO/PMX 3.375GM 50 ML IV SCH ×4 (03:01→21:01)
[2020-04-01] MEDS: HEPARIN 5,000 UNITS/ML, 1ML SQ SCH ×3 (03:02→19:51)
[2020-04-01] MEDS: SODIUM CHLORIDE 0.9% 1,000 ML IV SCH ×5 (03:02→17:52)
[2020-04-01 04:19] VITALS: BP 112/71
[2020-04-01 05:43] LABS: MEAN CORPUSCULAR HEMOGLOBIN 28.4 pg (27.5-34.5); MEAN CORPUSCULAR VOLUME 86.1 fL (81-97); MEAN PLATELET VOLUME 7.8 fL (7.4-10.4); PLATELET COUNT 478 x10^3/uL (130-400); RED BLOOD COUNT 4.28 x10^6/uL (4.38-5.82)
[2020-04-01 05:53] LABS: ALBUMIN 2.1 g/dL (3.4-5.0); ANION GAP 7 mmol/L (5-15); CALCIUM 7.9 mg/dL (8.5-10.1); CHLORIDE 105 mmol/L (98-107)
[2020-04-01 05:57] LABS: ALANINE AMINOTRANSFERASE 24 U/L (12-78); ALKALINE PHOSPHATASE 43 U/L (45-117); BILIRUBIN,TOTAL 0.7 mg/dL (0.2-1.0); CREATININE 0.67 mg/dL (0.7-1.3); TOTAL PROTEIN 5.6 g/dL (6.4-8.2)
[2020-04-01 06:00] LABS: BASOPHILS % (AUTO) 0 % (0-1); EOSINOPHILS % (AUTO) 0 % (1-7); LYMPHOCYTES # (AUTO) 1.25 x10^3/uL (1-3.4); LYMPHOCYTES % (AUTO) 10 % (22-44); MD SCAN; MONOCYTES # (AUTO) 0.78 x10^3/uL (0.2-0.8); MONOCYTES % (AUTO) 6 % (2-9); NEUTROPHILS # (AUTO) 10.42 x10^3/uL (1.8-6.8); NEUTROPHILS % (AUTO) 84 % (42-75)
[2020-04-01 07:58] VITALS: BP 118/73
[2020-04-01] MEDS: SENNA/DOCUSATE TABLET PO SCH (09:21)
[2020-04-01] MEDS: KETOROLAC 30 MG/1 ML IVPush SCH ×3 (09:22→21:01)
[2020-04-01] MEDS: POLYETHYLENE GLYCOL 17 GM PACKET PO SCH ×2 (09:22→09:30)
[2020-04-01] MEDS: ACETAMINOPHEN 325 MG TABLET PO SCH ×3 (09:22→21:01)
[2020-04-01 14:00] VITALS: BP 105/73
[2020-04-01 19:33] VITALS: BP 102/67
[2020-04-02] MEDS: SODIUM CHLORIDE 0.9% 1,000 ML IV SCH ×4 (00:39→23:23)
[2020-04-02] MEDS: morphine SULFATE 10 MG/ML, 1ML IVPush PRN ×6 (00:46→23:17)
[2020-04-02 01:42] VITALS: BP 122/82
[2020-04-02] MEDS: PIPERACILLIN/TAZO/PMX 3.375GM 50 ML IV SCH ×2 (02:55→08:27)
[2020-04-02] MEDS: HEPARIN 5,000 UNITS/ML, 1ML SQ SCH ×3 (02:56→21:33)
[2020-04-02] MEDS: KETOROLAC 30 MG/1 ML IVPush SCH ×4 (02:56→21:33)
[2020-04-02] MEDS: ACETAMINOPHEN 325 MG TABLET PO SCH ×4 (02:56→21:33)
[2020-04-02 05:08] LABS: BASOPHILS % (AUTO) 0 % (0-1); EOSINOPHILS # (AUTO) 0.05 x10^3/uL (0-0.4); EOSINOPHILS % (AUTO) 0 % (1-7); LYMPHOCYTES # (AUTO) 1.01 x10^3/uL (1-3.4); LYMPHOCYTES % (AUTO) 8 % (22-44); MD NO; MEAN CORPUSCULAR HEMOGLOBIN 28.3 pg (27.5-34.5); MEAN CORPUSCULAR HGB CONC 33.1 g/dL (33.2-36.2); MEAN CORPUSCULAR VOLUME 85.6 fL (81-97); MEAN PLATELET VOLUME 7.7 fL (7.4-10.4); MONOCYTES # (AUTO) 0.71 x10^3/uL (0.2-0.8); MONOCYTES % (AUTO) 6 % (2-9); NEUTROPHILS # (AUTO) 10.56 x10^3/uL (1.8-6.8); NEUTROPHILS % (AUTO) 86 % (42-75); PLATELET COUNT 394 x10^3/uL (130-400); RED BLOOD COUNT 3.83 x10^6/uL (4.38-5.82); RED CELL DISTRIBUTION WIDTH 14.8 % (9.4-14.8)
[2020-04-02 05:14] LABS: ANION GAP 9 mmol/L (5-15); CHLORIDE 104 mmol/L (98-107); CREATININE 0.53 mg/dL (0.7-1.3)
[2020-04-02 07:27] VITALS: BP 107/72
[2020-04-02] MEDS: POLYETHYLENE GLYCOL 17 GM PACKET PO SCH (08:26)
[2020-04-02] MEDS: SENNA/DOCUSATE TABLET PO SCH (08:27)
[2020-04-02 13:39] VITALS: BP 109/70
[2020-04-02] MEDS: MEROPENEM 1 GM in SODIUM CHLORIDE 0.9% 100 ML IV SCH ×2 (15:25→23:16)
[2020-04-02 16:22] LABS: HCT (SEDRATE) 32.8 % (39.2-51.8)
[2020-04-02 18:36] VITALS: BP 119/74
[2020-04-03 02:05] VITALS: BP 121/77
[2020-04-03] MEDS: morphine SULFATE 10 MG/ML, 1ML IVPush PRN ×5 (02:20→20:42)
[2020-04-03] MEDS: ACETAMINOPHEN 325 MG TABLET PO SCH ×4 (03:00→21:00)
[2020-04-03] MEDS: HEPARIN 5,000 UNITS/ML, 1ML SQ SCH ×3 (03:37→21:46)
[2020-04-03] MEDS: KETOROLAC 30 MG/1 ML IVPush SCH ×4 (03:37→21:46)
[2020-04-03 05:49] LABS: ANION GAP 8 mmol/L (5-15); CALCIUM 7.5 mg/dL (8.5-10.1); CHLORIDE 109 mmol/L (98-107)
[2020-04-03 05:53] LABS: BASOPHILS # (AUTO) 0.02 x10^3/uL (0-0.1); BASOPHILS % (AUTO) 0 % (0-1); EOSINOPHILS # (AUTO) 0.11 x10^3/uL (0-0.4); EOSINOPHILS % (AUTO) 2 % (1-7); LYMPHOCYTES # (AUTO) 0.86 x10^3/uL (1-3.4); LYMPHOCYTES % (AUTO) 12 % (22-44); MD NO; MEAN CORPUSCULAR HEMOGLOBIN 28.9 pg (27.5-34.5); MEAN CORPUSCULAR HGB CONC 33.7 g/dL (33.2-36.2); MEAN CORPUSCULAR VOLUME 85.8 fL (81-97); MEAN PLATELET VOLUME 7.8 fL (7.4-10.4); MONOCYTES # (AUTO) 0.45 x10^3/uL (0.2-0.8); MONOCYTES % (AUTO) 6 % (2-9); NEUTROPHILS # (AUTO) 5.67 x10^3/uL (1.8-6.8); NEUTROPHILS % (AUTO) 80 % (42-75); PLATELET COUNT 366 x10^3/uL (130-400); RED BLOOD COUNT 3.47 x10^6/uL (4.38-5.82); RED CELL DISTRIBUTION WIDTH 14.7 % (9.4-14.8)
[2020-04-03 06:21] LABS: C-REACTIVE PROTEIN, QUANT > 19.00 mg/dL (0.02-0.49)
[2020-04-03 06:28] LABS: HCT (SEDRATE) 29.8 % (39.2-51.8)
[2020-04-03] MEDS: SODIUM CHLORIDE 0.9% 1,000 ML IV SCH (06:33)
[2020-04-03] MEDS: MEROPENEM 1 GM in SODIUM CHLORIDE 0.9% 100 ML IV SCH (06:33)
[2020-04-03 08:55] VITALS: BP 112/72
[2020-04-03] MEDS: SENNA/DOCUSATE TABLET PO SCH (09:02)
[2020-04-03] MEDS: POLYETHYLENE GLYCOL 17 GM PACKET PO SCH (09:02)
[2020-04-03] MEDS: ERTAPENEM 1 GM in SODIUM CHLORIDE 0.9% 50 ML IV SCH (13:57)
[2020-04-03 15:26] VITALS: BP 113/65
[2020-04-03 19:19] VITALS: BP 142/74
[2020-04-04 01:05] VITALS: BP 128/71
[2020-04-04] MEDS: morphine SULFATE 10 MG/ML, 1ML IVPush PRN ×4 (01:21→19:09)
[2020-04-04] MEDS: SODIUM CHLORIDE 0.9% 1,000 ML IV SCH ×3 (01:21→23:00)
[2020-04-04] MEDS: ACETAMINOPHEN 325 MG TABLET PO SCH ×4 (03:00→21:00)
[2020-04-04] MEDS: KETOROLAC 30 MG/1 ML IVPush SCH ×4 (03:38→21:56)
[2020-04-04] MEDS: HEPARIN 5,000 UNITS/ML, 1ML SQ SCH ×3 (03:38→21:56)
[2020-04-04 05:48] LABS: BASOPHILS # (AUTO) 0.02 x10^3/uL (0-0.1); BASOPHILS % (AUTO) 0 % (0-1); EOSINOPHILS # (AUTO) 0.14 x10^3/uL (0-0.4); EOSINOPHILS % (AUTO) 2 % (1-7); LYMPHOCYTES # (AUTO) 1.04 x10^3/uL (1-3.4); LYMPHOCYTES % (AUTO) 14 % (22-44); MD NO; MEAN CORPUSCULAR HEMOGLOBIN 28.5 pg (27.5-34.5); MEAN CORPUSCULAR HGB CONC 33.3 g/dL (33.2-36.2); MEAN CORPUSCULAR VOLUME 85.8 fL (81-97); MEAN PLATELET VOLUME 8.1 fL (7.4-10.4); MONOCYTES # (AUTO) 0.51 x10^3/uL (0.2-0.8); MONOCYTES % (AUTO) 7 % (2-9); NEUTROPHILS # (AUTO) 5.51 x10^3/uL (1.8-6.8); NEUTROPHILS % (AUTO) 76 % (42-75); PLATELET COUNT 379 x10^3/uL (130-400); RED BLOOD COUNT 3.32 x10^6/uL (4.38-5.82); RED CELL DISTRIBUTION WIDTH 14.7 % (9.4-14.8)
[2020-04-04 05:51] LABS: HCT (SEDRATE) 28.5 % (39.2-51.8)
[2020-04-04 05:53] LABS: CHLORIDE 105 mmol/L (98-107)
[2020-04-04 05:54] LABS: ALANINE AMINOTRANSFERASE 21 U/L (12-78); ALBUMIN 1.8 g/dL (3.4-5.0); ANION GAP 10 mmol/L (5-15); CALCIUM 7.5 mg/dL (8.5-10.1); CREATININE 0.36 mg/dL (0.7-1.3)
[2020-04-04 06:00] LABS: ALKALINE PHOSPHATASE 47 U/L (45-117); BILIRUBIN,TOTAL 0.4 mg/dL (0.2-1.0); TOTAL PROTEIN 5.4 g/dL (6.4-8.2)
[2020-04-04 07:00] VITALS: BP 114/70
[2020-04-04] MEDS: SENNA/DOCUSATE TABLET PO SCH (08:44)
[2020-04-04] MEDS: POLYETHYLENE GLYCOL 17 GM PACKET PO SCH (08:44)
[2020-04-04] MEDS: POTASSIUM CHLORIDE 20 MEQ PACKET PO SCH ×2 (08:44→19:08)
[2020-04-04] MEDS ORDERED: FAMOTIDINE 20 MG TABLET PO PRN (13:00)
[2020-04-04 13:20] VITALS: BP 113/71
[2020-04-04] MEDS: ERTAPENEM 1 GM in SODIUM CHLORIDE 0.9% 50 ML IV SCH (14:33)
[2020-04-04 19:32] VITALS: BP 116/67
[2020-04-04] MEDS ORDERED: SIMVASTATIN 40 MG TABLET PO SCH (21:00)
[2020-04-04] MEDS: OXYcodone/APAP 5/325MG TABLET PO PRN (21:55)
[2020-04-05 01:00] VITALS: BP 114/60
[2020-04-05] MEDS: OXYcodone/APAP 5/325MG TABLET PO PRN ×5 (01:52→18:50)
[2020-04-05] MEDS: ACETAMINOPHEN 325 MG TABLET PO SCH ×3 (03:00→14:31)
[2020-04-05] MEDS: KETOROLAC 30 MG/1 ML IVPush SCH ×3 (03:43→14:24)
[2020-04-05] MEDS: HEPARIN 5,000 UNITS/ML, 1ML SQ SCH ×3 (03:43→21:57)
[2020-04-05 06:23] LABS: ALANINE AMINOTRANSFERASE 22 U/L (12-78); ANION GAP 9 mmol/L (5-15); CALCIUM 7.9 mg/dL (8.5-10.1); CHLORIDE 106 mmol/L (98-107); CREATININE 0.36 mg/dL (0.7-1.3)
[2020-04-05 06:25] LABS: ALKALINE PHOSPHATASE 50 U/L (45-117); BILIRUBIN,TOTAL 0.5 mg/dL (0.2-1.0); TOTAL PROTEIN 5.8 g/dL (6.4-8.2)
[2020-04-05 06:30] LABS: BASOPHILS # (AUTO) 0.04 x10^3/uL (0-0.1); BASOPHILS % (AUTO) 1 % (0-1); EOSINOPHILS # (AUTO) 0.11 x10^3/uL (0-0.4); EOSINOPHILS % (AUTO) 2 % (1-7); LYMPHOCYTES # (AUTO) 1.34 x10^3/uL (1-3.4); LYMPHOCYTES % (AUTO) 21 % (22-44); MD NO; MEAN CORPUSCULAR HEMOGLOBIN 28.8 pg (27.5-34.5); MEAN CORPUSCULAR HGB CONC 33.7 g/dL (33.2-36.2); MEAN CORPUSCULAR VOLUME 85.7 fL (81-97); MEAN PLATELET VOLUME 8.3 fL (7.4-10.4); MONOCYTES # (AUTO) 0.45 x10^3/uL (0.2-0.8); MONOCYTES % (AUTO) 7 % (2-9); NEUTROPHILS # (AUTO) 4.55 x10^3/uL (1.8-6.8); NEUTROPHILS % (AUTO) 70 % (42-75); PLATELET COUNT 379 x10^3/uL (130-400); RED BLOOD COUNT 3.31 x10^6/uL (4.38-5.82); RED CELL DISTRIBUTION WIDTH 14.8 % (9.4-14.8)
[2020-04-05 06:31] VITALS: BP 119/82
[2020-04-05] MEDS ORDERED: POTASSIUM CHLORIDE 40 MEQ in SODIUM CHLORIDE 0.9% 500 ML IV ONE (07:00)
[2020-04-05] MEDS: POTASSIUM CHLORIDE 20 MEQ PACKET PO SCH ×2 (07:29→17:49)
[2020-04-05] MEDS: POLYETHYLENE GLYCOL 17 GM PACKET PO SCH (07:29)
[2020-04-05] MEDS: SENNA/DOCUSATE TABLET PO SCH (07:29)
[2020-04-05 13:04] VITALS: BP 127/82
[2020-04-05] MEDS: ERTAPENEM 1 GM in SODIUM CHLORIDE 0.9% 50 ML IV SCH (14:02)
[2020-04-05] MEDS ORDERED: ACETAMINOPHEN 325 MG TABLET PO PRN (17:30)
[2020-04-05 19:09] VITALS: BP 133/79
[2020-04-05] MEDS: morphine SULFATE 10 MG/ML, 1ML IVPush PRN (20:30)
[2020-04-06 02:22] VITALS: BP 151/91
[2020-04-06] MEDS: OXYcodone/APAP 5/325MG TABLET PO PRN ×3 (02:31→12:46)
[2020-04-06 04:45] LABS: ALANINE AMINOTRANSFERASE 22 U/L (12-78); ALBUMIN 2.2 g/dL (3.4-5.0); ANION GAP 8 mmol/L (5-15); CALCIUM 8.2 mg/dL (8.5-10.1); CHLORIDE 105 mmol/L (98-107)
[2020-04-06 04:53] LABS: ALKALINE PHOSPHATASE 57 U/L (45-117); BILIRUBIN,TOTAL 0.6 mg/dL (0.2-1.0); CREATININE 0.47 mg/dL (0.7-1.3); TOTAL PROTEIN 6.5 g/dL (6.4-8.2)
[2020-04-06 04:55] LABS: BASOPHILS # (AUTO) 0.05 x10^3/uL (0-0.1); BASOPHILS % (AUTO) 1 % (0-1); EOSINOPHILS % (AUTO) 1 % (1-7); LYMPHOCYTES # (AUTO) 1.09 x10^3/uL (1-3.4); LYMPHOCYTES % (AUTO) 13 % (22-44); MD NO; MEAN CORPUSCULAR HEMOGLOBIN 28.1 pg (27.5-34.5); MEAN CORPUSCULAR VOLUME 85.3 fL (81-97); MEAN PLATELET VOLUME 8.2 fL (7.4-10.4); MONOCYTES % (AUTO) 5 % (2-9); NEUTROPHILS # (AUTO) 6.59 x10^3/uL (1.8-6.8); NEUTROPHILS % (AUTO) 80 % (42-75); PLATELET COUNT 405 x10^3/uL (130-400); RED BLOOD COUNT 3.65 x10^6/uL (4.38-5.82); RED CELL DISTRIBUTION WIDTH 15.2 % (9.4-14.8)
[2020-04-06 05:13] LABS: HCT (SEDRATE) 31.1 % (39.2-51.8)
[2020-04-06] MEDS: HEPARIN 5,000 UNITS/ML, 1ML SQ SCH (05:41)
[2020-04-06 07:08] VITALS: BP 139/81
[2020-04-06] MEDS: POTASSIUM CHLORIDE 20 MEQ PACKET PO SCH (08:00)
[2020-04-06] MEDS: SENNA/DOCUSATE TABLET PO SCH (08:29)
[2020-04-06] MEDS: POLYETHYLENE GLYCOL 17 GM PACKET PO SCH (08:29)
[2020-04-06] MEDS ORDERED: OXYC-302 PO (10:25)
[2020-04-06] MEDS ORDERED: ERTA1VIA4 IV (10:25)
== END 2020-04-06 12:57 | disposition home or self-care (01) | DRG 335 ==
LOC: ED 16:38 → EDIP 19:04 → 4NE 20:27 → 3N 04-05 18:00
PROVIDERS: ATTEND Family Medicine
PROC: 3E1M38Z Irrigation of Peritoneal Cavity using Irrigating Substance, Percutaneous Approach (ICD-10-PCS; 2020-03-31)
PROC: 0DNW0ZZ Release Peritoneum, Open Approach (ICD-10-PCS; principal; 2020-03-31 08:00)
PROC: 02HV33Z Insertion of Infusion Device into Superior Vena Cava, Percutaneous Approach (ICD-10-PCS; 2020-04-04)
PROC: B548ZZA Ultrasonography of Superior Vena Cava, Guidance (ICD-10-PCS; 2020-04-04)
DX: K56.52 Intestinal adhesions [bands] with complete obstruction (principal); K65.0 Generalized (acute) peritonitis; K65.1 Peritoneal abscess; D63.8 Anemia in other chronic diseases classified elsewhere; R33.9 Retention of urine, unspecified; F17.210 Nicotine dependence, cigarettes, uncomplicated; Z85.47 Personal history of malignant neoplasm of testis; Z90.49 Acquired absence of other specified parts of digestive tract; Z90.79 Acquired absence of other genital organ(s)
CPT/HCPCS: 36415; 74018; 84145; 96365; 96366; 96375; 99285; J3490; 36573; 80048; 80053; 81001; 83605; 85025; 85651; 86140; 87015; 87040; 87070; 87075; 87077; 87086; 87102; 87116; 87186; 87205; 87206; 88307; 93005; G0378; J0690; J1100; J1170; J1335; J1644; J1885; J2185; J2250; J2405; J2543; J2704; J2710; J3010; J3480; C1751; J0330; J2060; J2270; J7030; J7040

== ENCOUNTER → 2020-04-21 | Outpatient (CLI) | payer MEDICAID ==
[~2020-04-21] MED LIST changes: +AMOX1TAB61 PO; +ERTA1VIA4 IV; +OMNIPAQUE 350 MG/ML, 100ML BOTTLE ONE; +OXYC-302 PO; +OXYC5CAP2 PO; +TRAM50TA2 PO
== END | disposition home or self-care (01) ==
LOC: CFH 10:09
PROVIDERS: ATTEND Internal Medicine Infectious Disease
DX: K35.32 Acute appendicitis with perforation, localized peritonitis, and gangrene, without abscess (principal); R16.1 Splenomegaly, not elsewhere classified; J98.11 Atelectasis; N28.1 Cyst of kidney, acquired; K57.30 Diverticulosis of large intestine without perforation or abscess without bleeding; N40.0 Benign prostatic hyperplasia without lower urinary tract symptoms; K36 Other appendicitis; Z90.49 Acquired absence of other specified parts of digestive tract; K56.609 Unspecified intestinal obstruction, unspecified as to partial versus complete obstruction; D63.8 Anemia in other chronic diseases classified elsewhere
CPT/HCPCS: 74177; Q9967